=== PATIENT | male | born 1940 | race Caucasian/White ===

== ENCOUNTER 2024-10-05 19:58 | Inpatient (IN) | payer OTHER ==
[2024-10-05 20:07] VITALS: BMI 32.6
[2024-10-05] MEDS ORDERED: ALBUTEROL SO4 2.5/IPRATROPIUM 0.5 INH SOL 3 ML VIAL.NEB. NEB ONE (20:47)
[2024-10-05] MEDS: ALBUTEROL SO4 2.5/IPRATROPIUM 0.5 INH SOL 3 ML VIAL.NEB. NEB ONE (20:48)
[2024-10-05 20:50] LABS: HEMATOCRIT 24.2 % (40.1-51.0); HEMOGLOBIN 8.4 g/dL (13.7-17.5); MCHC 34.7 g/dl (32.3-36.5); MEAN CELL VOLUME 109.5 fl (79.0-92.2); MEAN PLT VOLUME 12.4 fl (9.4-12.4); PLATELET COUNT 157 x10^3/uL (163-337); RDW 13.1 % (12.6-16.6)
[2024-10-05 21:00] LABS: INR 1.27 (0.83-1.09)
[2024-10-05 21:12] LABS: POTASSIUM 5.5 mmol/L (3.5-5.1)
[2024-10-05 21:13] LABS: ALBUMIN 3.8 g/dl (3.4-5.0); CALCIUM 9.6 mg/dL (8.5-10.1)
[2024-10-05 21:15] LABS: BLOOD UREA NITROGEN 29.3 mg/dL (7-18)
[2024-10-05 21:17] LABS: CREATININE 1.4 mg/dL (0.55-1.3)
[2024-10-05 21:19] LABS: BILIRUBIN,TOTAL 1.5 mg/dL (0.2-1); TOT PROT 6.5 g/dl (6.4-8.2)
[2024-10-05 22:45] LABS: POTASSIUM 4.1 mmol/L (3.5-5.1)
[2024-10-05 22:47] LABS: CALCIUM 9.6 mg/dL (8.5-10.1)
[2024-10-05 22:48] LABS: ALBUMIN 3.8 g/dl (3.4-5.0); BLOOD UREA NITROGEN 29.5 mg/dL (7-18)
[2024-10-05 22:51] LABS: CREATININE 1.3 mg/dL (0.55-1.3)
[2024-10-05 22:52] LABS: BILIRUBIN,TOTAL 1.6 mg/dL (0.2-1); TOT PROT 6.3 g/dl (6.4-8.2)
[2024-10-05] MEDS ORDERED: CEFTRIAXONE 1 GM/50 ML BAG ONE (23:45)
[2024-10-06] MEDS: CEFTRIAXONE 1 GM in DEXTROSE 5%-WATER - 100 ML IVPB ONE (00:02)
[2024-10-06] MEDS ORDERED: AZITHROMYCIN 500 MG TABLET ONE (00:07)
[2024-10-06] MEDS: AZITHROMYCIN 250 MG TABLET PO ONE (00:10)
[2024-10-06] MEDS ORDERED: ALBUTEROL SO4 2.5/IPRATROPIUM 0.5 INH SOL 3 ML VIAL.NEB. NEB PRN ×2 (00:29→10:00)
[2024-10-06] MEDS: LACTATED RINGERS SOLUTION 1,000 ML/1,000 ML INFUS.BAG IV SCH (01:46)
[2024-10-06] MEDS: ALBUTEROL SO4 2.5/IPRATROPIUM 0.5 INH SOL 3 ML VIAL.NEB. NEB SCH (04:20)
[2024-10-06 06:37] LABS: HEMATOCRIT 23.3 % (40.1-51.0); HEMOGLOBIN 7.9 g/dL (13.7-17.5); MCHC 33.9 g/dl (32.3-36.5); MEAN PLT VOLUME 12.2 fl (9.4-12.4); PLATELET COUNT 141 x10^3/uL (163-337); RDW 13.1 % (12.6-16.6)
[2024-10-06 06:38] LABS: PH,URINE 5.5 (5.0-8.0); URINE APPEARANCE CLEAR; URINE BILIRUBIN NEGATIVE (NEGATIVE); URINE COLOR YELLOW; URINE GLUCOSE (UA) NEGATIVE (NEGATIVE); URINE KETONE NEGATIVE (NEGATIVE); URINE LEUK ESTERASE NEGATIVE (NEGATIVE); URINE NITRITE NEGATIVE (NEGATIVE); URINE PROTEIN NEGATIVE (NEGATIVE); URINE UROBILINOGEN 0.2 mg/dL (0.2-1.0)
[2024-10-06 07:07] LABS: ALBUMIN 3.4 g/dl (3.4-5.0); BLOOD UREA NITROGEN 24.3 mg/dL (7-18); CALCIUM 9.5 mg/dL (8.5-10.1); MAGNESIUM 2.1 mg/dL (1.8-2.4)
[2024-10-06 07:10] LABS: CREATININE 1.1 mg/dL (0.55-1.3)
[2024-10-06 07:12] LABS: PHOSPHOROUS 2.5 mg/dL (2.5-4.9)
[2024-10-06 07:13] LABS: BILIRUBIN,TOTAL 2.1 mg/dL (0.2-1); TOT PROT 5.8 g/dl (6.4-8.2)
[2024-10-06 09:29] LABS: ABSOLUTE IMMATURE GRANULOCYTES 0.49 x10^3/uL (0.0-0.031); BASOPHILS # 0.01 x10^3/uL (0.01-0.08); EOSINOPHIL % 0.1 % (0.8-7.0); EOSINOPHILS # 0.01 x10^3/uL (0.04-0.54); MONOCYTE # 0.81 x10^3/uL (0.30-0.82); MONOCYTE % 10.6 % (5.3-12.2); Reticulocyte % 1.64 % (0.51-1.81)
[2024-10-06] MEDS: CEFTRIAXONE 1 GM in DEXTROSE 5%-WATER - 50 ML IVPB SCH (10:23)
[2024-10-06] MEDS: AZITHROMYCIN 250 MG TABLET PO SCH (10:24)
[2024-10-06] MEDS: ENOXAPARIN NA (PORCINE) 40 MG/0.4 ML DISP.SYRIN SQ SCH (10:30)
[2024-10-06 15:45] LABS: BILIRUBIN,DIRECT 0.5 mg/dL (0.0-0.2)
[2024-10-06 15:49] LABS: N-TERMINAL BNP 363.3 pg/ml (5-450)
[2024-10-06] MEDS: ATORVASTATIN CA 10 MG TABLET (FP) PO SCH (22:32)
[2024-10-06] MEDS: SENNOSIDES 8.6MG TABLET (FP) PO SCH (22:32)
[2024-10-07 07:02] LABS: HEMOGLOBIN 7.7 g/dL (13.7-17.5); MEAN PLT VOLUME 12.5 fl (9.4-12.4)
[2024-10-07 07:04] LABS: HEMATOCRIT 22.6 % (40.1-51.0); MCHC 34.1 g/dl (32.3-36.5); MEAN CELL VOLUME 110.8 fl (79.0-92.2); PLATELET COUNT 135 x10^3/uL (163-337); RDW 13.1 % (12.6-16.6)
[2024-10-07 07:14] LABS: POTASSIUM 4.2 mmol/L (3.5-5.1)
[2024-10-07 07:18] LABS: ALBUMIN 3.3 g/dl (3.4-5.0); BLOOD UREA NITROGEN 17.6 mg/dL (7-18)
[2024-10-07 07:23] LABS: BILIRUBIN,TOTAL 0.8 mg/dL (0.2-1); TOT PROT 5.8 g/dl (6.4-8.2)
[2024-10-07] MEDS ORDERED: LISINOPRIL 20 MG TABLET PO SCH (10:00)
[2024-10-07 20:56] LABS: Reticulocyte % 1.62 % (0.51-1.81)
[2024-10-07 21:24] LABS: BILIRUBIN,DIRECT 0.2 mg/dL (0.0-0.2)
[2024-10-08 08:15] LABS: HEMOGLOBIN 7.9 g/dL (13.7-17.5)
[2024-10-08 08:16] LABS: HEMATOCRIT 23.7 % (40.1-51.0); MCHC 33.3 g/dl (32.3-36.5); MEAN CELL VOLUME 112.3 fl (79.0-92.2); MEAN PLT VOLUME 11.8 fl (9.4-12.4); PLATELET COUNT 147 x10^3/uL (163-337); RDW 13.1 % (12.6-16.6)
[2024-10-08 08:34] LABS: POTASSIUM 3.9 mmol/L (3.5-5.1)
[2024-10-08 08:49] LABS: CALCIUM 9.4 mg/dL (8.5-10.1)
[2024-10-08 08:50] LABS: ALBUMIN 3.4 g/dl (3.4-5.0); BLOOD UREA NITROGEN 18.2 mg/dL (7-18)
[2024-10-08 08:55] LABS: BILIRUBIN,TOTAL 0.8 mg/dL (0.2-1); TOT PROT 5.9 g/dl (6.4-8.2)
[2024-10-08] MEDS: CEFPODOXIME PROXETIL 200 MG TABLET PO SCH (21:56)
[2024-10-09 07:58] LABS: HEMATOCRIT 24.5 % (40.1-51.0); MCHC 32.7 g/dl (32.3-36.5); MEAN CELL VOLUME 112.4 fl (79.0-92.2); MEAN PLT VOLUME 11.9 fl (9.4-12.4); PLATELET COUNT 162 x10^3/uL (163-337); RDW 13.4 % (12.6-16.6)
[2024-10-09 08:13] LABS: POTASSIUM 3.9 mmol/L (3.5-5.1)
[2024-10-09 08:18] LABS: CALCIUM 9.5 mg/dL (8.5-10.1)
[2024-10-10 06:38] LABS: HEMOGLOBIN 8.3 g/dL (13.7-17.5)
[2024-10-10 06:40] LABS: HEMATOCRIT 24.8 % (40.1-51.0); MCHC 33.5 g/dl (32.3-36.5); MEAN CELL VOLUME 112.2 fl (79.0-92.2); MEAN PLT VOLUME 11.9 fl (9.4-12.4); PLATELET COUNT 173 x10^3/uL (163-337)
[2024-10-10 07:02] LABS: POTASSIUM 4.3 mmol/L (3.5-5.1)
[2024-10-10 07:04] LABS: ALBUMIN 3.4 g/dl (3.4-5.0); BLOOD UREA NITROGEN 16.9 mg/dL (7-18); CALCIUM 9.4 mg/dL (8.5-10.1)
[2024-10-10 07:09] LABS: BILIRUBIN,TOTAL 0.9 mg/dL (0.2-1)
[2024-10-10 15:58] VITALS: BP 129/64; PULSE 62; RESP 17; TEMP 98.3
[2024-10-10 19:06] LABS: IG A QN SERUM. 167 mg/dL (61-437)
== END 2024-10-10 15:50 | disposition home or self-care (01) | DRG 194 ==
LOC: JER 19:58 → JERBED 10-06 00:55 → J4S 10-06 02:08 → OBSVTOIN 10-06 13:49
PROVIDERS: ADMIT Internal Medicine; ATTEND Internal Medicine
DX: J18.9 Pneumonia, unspecified organism (principal); D61.818 Other pancytopenia; E87.20 Acidosis, unspecified; E78.5 Hyperlipidemia, unspecified; I10 Essential (primary) hypertension; D53.9 Nutritional anemia, unspecified; K59.00 Constipation, unspecified; N28.89 Other specified disorders of kidney and ureter; I71.20 Thoracic aortic aneurysm, without rupture, unspecified
CPT/HCPCS: 0241U-QW; 36415; 71046-TC-FY; 71250-TC; 74176-TC; 76775-TC; 80048; 80053; 81003; 82248; 82436; 82525; 82570; 82607; 82728; 82746; 82784; 82962; 83010; 83540; 83550; 83615; 83735; 83880; 83883; 84100; 84133; 84155; 84165; 84300; 84443; 84484; 84630; 85025; 85610; 85730; 86738; 86880; 87070; 87205; 87899; 88300-TC; 93005; 93010; 93306-TC; 94640; 99285-25; G0378